=== PATIENT | female | born 1960 | race Hispanic/Latino ===

== ENCOUNTER → 2018-01-22 | Outpatient (CLI) | payer MEDICARE, OTHER | END | disposition home or self-care (01) | LOC: RAH 08:01 | PROVIDERS: ATTEND Internal Medicine Hematology & Oncology | DX: K80.20 Calculus of gallbladder without cholecystitis without obstruction (principal) | CPT/HCPCS: 76700 ==

== ENCOUNTER → 2018-02-22 | Outpatient (CLI) | payer OTHER ==
[~2018-02-22] VITALS: Ht 157.5 cm; Wt 64.9 kg
[~2018-02-22] MED LIST: LIDOCAINE HCL MPF 1% 5ML VIAL ONE
[2018-02-22 14:16] LABS: INR 1.01 (0.85-1.15); PROTHROMBIN TIME 10.6 SEC (9.6-11.6)
[2018-02-22 15:28] LABS: SPECIMENTYPE,BODY FLUID ASCITES FLUID; TOTAL VOLUME,BODY FLUID 3700 mL
[2018-02-22 16:32] LABS: APPEARANCE BODY FLUID SLIGHTLY CLOUDY (CLEAR); COLOR,BODY FLUID LT YELLOW (LT YELLOW)
[2018-02-22 16:33] LABS: BODY FLUID RBC 175 /cu. mm.; BODY FLUID WBC 182 /cu. mm.
[2018-02-22 16:42] LABS: BF LYMPHOCYTE 47 %; BF MONOCYTE 6 %; BF OTHER CELLS 35
== END | disposition home or self-care (01) ==
LOC: RAH 12:21
PROVIDERS: ATTEND Internal Medicine Hematology & Oncology
DX: R18.8 Other ascites (principal); K74.69 Other cirrhosis of liver; D69.6 Thrombocytopenia, unspecified; E78.5 Hyperlipidemia, unspecified; Z98.51 Tubal ligation status; Z98.890 Other specified postprocedural states; Z80.3 Family history of malignant neoplasm of breast; Z80.0 Family history of malignant neoplasm of digestive organs
CPT/HCPCS: 36415; 49083; 85610; 87071; 87205; 88108; 88305; 89051; A4215; J3490

== ENCOUNTER → 2018-07-10 | Outpatient (CLI) | payer OTHER | END | disposition home or self-care (01) | LOC: RAH 10:00 | PROVIDERS: ATTEND Internal Medicine Gastroenterology | DX: K80.20 Calculus of gallbladder without cholecystitis without obstruction (principal); K74.60 Unspecified cirrhosis of liver | CPT/HCPCS: 76700; 93975 ==

== ENCOUNTER → 2018-08-21 | Outpatient (CLI) | payer OTHER | END | disposition home or self-care (01) | LOC: RAH 09:50 | PROVIDERS: ATTEND Internal Medicine Gastroenterology | DX: K80.20 Calculus of gallbladder without cholecystitis without obstruction (principal); K74.60 Unspecified cirrhosis of liver | CPT/HCPCS: 78226; A9537 ==

== ENCOUNTER → 2018-12-19 | Outpatient (CLI) | payer OTHER ==
[~2018-12-19] MED LIST changes: +CEFAZOLIN SODIUM 1 GM VIAL ONE; +FENTANYL CITRATE PF 50 MCG/1 ML 2ML VIAL ONE; -LIDOCAINE HCL MPF 1% 5ML VIAL ONE; +LIDOCAINE PF 2% 5ML ABBOJECT ONE; +MIDAZOLAM HCL 1 MG/ML 2ML VIAL ONE; +ONDANSETRON HCL 4 MG/2 ML VIAL ONE; +PROPOFOL 10 MG/ML 20ML VIAL IV ONE
== END | disposition home or self-care (01) ==
LOC: RAH 08:07
PROVIDERS: ATTEND Internal Medicine Gastroenterology
DX: I83.90 Asymptomatic varicose veins of unspecified lower extremity (principal); R16.1 Splenomegaly, not elsewhere classified; R18.8 Other ascites
CPT/HCPCS: 76700; 93975; J0690; J2001; J2250; J2405; J2704; J3010

== ENCOUNTER → 2019-10-17 | Outpatient (CLI) | payer OTHER | END | disposition home or self-care (01) | LOC: RAH 08:04 | PROVIDERS: ATTEND Internal Medicine Gastroenterology | DX: K74.60 Unspecified cirrhosis of liver (principal) | CPT/HCPCS: 76700; 93975 ==

== ENCOUNTER 2021-01-20 20:26 | Inpatient (IN) | payer OTHER ==
[~2021-01-20] VITALS: Ht 157.5 cm; Wt 56.1 kg
[2021-01-20] MEDS ORDERED: FAMOTIDINE 20MG VIAL IV ONE (21:30)
[2021-01-20] MEDS ORDERED: ONDANSETRON 4MG INJ IVP ONE (21:30)
[2021-01-20] MEDS ORDERED: METOCLOPRAMIDE 10 MG/2 ML VIAL IVP ONE (21:30)
[2021-01-20] MEDS ORDERED: PANTOPRAZOLE 40 MG/VIAL IVP ONE (21:30)
[2021-01-20] MEDS ORDERED: 0.9%NACL 1000ML 1,000 ML IV ONE ×2 (21:30→23:00)
[2021-01-20 21:31] LABS: BASOPHILS % (AUTO) 0.1 % (0.0-5.0); EOSINOPHILS % (AUTO) 0.3 % (0.0-8.0); HEMATOCRIT 33.2 % (36-48); LYMPHOCYTES % (AUTO) 2.9 % (21.0-51.0); MEAN CORPUSCULAR HGB CONC 33.7 g/dL (32.0-36.0); MEAN CORPUSCULAR VOLUME 94.9 fL (79-99); MONOCYTES % (AUTO) 9.7 % (3.0-13.0); NEUTROPHILS % (AUTO) 85.8 % (40.0-77.0); PLATELET COUNT (AUTO) 114 K/uL (130-400); WHITE BLOOD COUNT (AUTO) 9.5 K/uL (4.8-10.8)
[2021-01-20 22:09] LABS: ALBUMIN 2.3 g/dL (3.5-5.0); CREATININE 7.4 mg/dL (0.5-1.5); POTASSIUM 5.4 mmol/L (3.5-5.1)
[2021-01-20 22:12] LABS: BILIRUBIN,TOTAL 2.6 mg/dL (0.2-1.0); TOTAL PROTEIN, SERUM 7.3 g/dL (6.0-8.3)
[2021-01-20] MEDS ORDERED: INSULIN HUMULIN R 100 UNIT/ML 3ML IV ONE (23:00)
[2021-01-20 23:17] LABS: ABG BASE EXCESS -14.4 mmol/L (-2.0-3.0); ABG HCO3 10.6 mmol/L (21.0-28.0); ABG OXYGEN SATURATION 97.8 % (95.0-99.0); ABG PCO2 24 mmHg (32-45)
[2021-01-21] VITALS (32 sets, daily range): BP systolic 96–117; BP diastolic 44–65
[2021-01-21] MEDS ORDERED: CEFTRIAXONE 1G VIAL IVP ONE
[2021-01-21] MEDS ORDERED: INSULIN HUMULIN R 100 UNIT/ML 3ML IV ONE
[2021-01-21] MEDS ORDERED: NITROGLYCERIN 0.4 MG SL TAB SL PRN (00:30)
[2021-01-21] MEDS ORDERED: POTASSIUM CHLORIDE 10MEQ/100ML 100 ML IV PRN (00:30)
[2021-01-21] MEDS ORDERED: HYDRALAZINE 20MG/ML VIAL IV PRN (00:30)
[2021-01-21] MEDS ORDERED: 0.9%NACL 1000ML 1,000 ML IV SCH (00:30)
[2021-01-21] MEDS: CEFTRIAXONE 1G VIAL IV SCH ×2 (00:30→02:37)
[2021-01-21] MEDS ORDERED: POTASSIUM CHLORIDE 20MEQ/100ML 100 ML IV PRN (00:30)
[2021-01-21] MEDS ORDERED: LIDOCAINE HCL-MPF 1% 2ML VIAL IV PRN (00:30)
[2021-01-21] MEDS ORDERED: METOCLOPRAMIDE 10 MG/2 ML VIAL ONE (00:42)
[2021-01-21] MEDS ORDERED: PANTOPRAZOLE 40 MG/VIAL ONE (00:43)
[2021-01-21] MEDS ORDERED: SODIUM BICARB 50MEQ 50ML VIAL 200 ML ONE (00:43)
[2021-01-21] MEDS ORDERED: 0.9%NACL 100ML 100 ML ONE (00:45)
[2021-01-21] MEDS: INSULIN REGULAR, HUMAN 3ML 100 UNIT in 0.9%NACL 100ML 99 ML IV PRN ×4 (01:00→02:00)
[2021-01-21 01:20] LABS: CREATININE 7.3 mg/dL (0.5-1.5)
[2021-01-21 01:25] LABS: POTASSIUM 6.4 mmol/L (3.5-5.1)
[2021-01-21 01:40] LABS: APPEARANCE,URINE Cloudy (CLEAR); BILIRUBIN,URINE Negative (NEGATIVE); COLOR,URINE Yellow (YELLOW); GLUCOSE, URINE (UA) Negative (NEGATIVE); KETONES,URINE Negative (NEGATIVE); LEUKOCYTE ESTERASE ,URINE Moderate (NEGATIVE); NITRATE,URINE Negative (NEGATIVE); OCCULT BLOOD,URINE Negative (NEGATIVE); PROTEIN,URINE Trace mg/dL (NEGATIVE); UROBILINOGEN,URINE 0.2 mg/dL (0.2-1.0)
[2021-01-21] MEDS: SODIUM BICARB 8.4% 50ML SYRINGE IVP SCH ×5 (01:43→03:59)
[2021-01-21 01:46] LABS: BACTERIA,URINE Moderate /HPF (None Seen); RBC,URINE None Seen /HPF (0-1); SQUAMOUS EPITHELIAL CELL,UR Rare /HPF (0-2)
[2021-01-21 06:31] LABS: CREATININE 6.7 mg/dL (0.5-1.5); POTASSIUM 4.6 mmol/L (3.5-5.1)
[2021-01-21] MEDS: 0.9%NACL 1000ML 1,000 ML IV SCH ×4 (07:10→20:42)
[2021-01-21 07:25] LABS: ABG BASE EXCESS -7.4 mmol/L (-2.0-3.0); ABG HCO3 17.8 mmol/L (21.0-28.0); ABG OXYGEN SATURATION 95.5 % (95.0-99.0); ABG PCO2 36 mmHg (32-45)
[2021-01-21] MEDS ORDERED: ZOSYN 3.375GM+NS 50ML 3.38 GM in 0.9%NACL 50ML 50 ML IV SCH (07:30)
[2021-01-21 07:39] LABS: INR 1.13 (0.85-1.15); PROTHROMBIN TIME 12.2 SEC (9.6-11.6)
[2021-01-21 07:40] LABS: PARTIAL THROMBOPLASTIN TIME 33.1 SEC (26.3-35.5)
[2021-01-21 07:59] LABS: CHOLESTEROL 100 mg/dL (<200); HDL CHOLESTEROL 14 mg/dL (35-85); LDL DIRECT 58 mg/dL (0-99); TRIGLYCERIDES 97 mg/dL (30-200)
[2021-01-21 08:01] LABS: HEMOGLOBIN A1C 8.1 % (4.0-6.0)
[2021-01-21] MEDS: METOCLOPRAMIDE 10 MG/2 ML VIAL IVP SCH ×4 (08:36→20:41)
[2021-01-21] MEDS: FAMOTIDINE 20MG VIAL IV SCH ×2 (08:36→20:41)
[2021-01-21] MEDS: HEPARIN 5,000 UNIT VIAL SQ SCH ×2 (09:59→21:28)
[2021-01-21 11:56] LABS: CREATININE 6.8 mg/dL (0.5-1.5); POTASSIUM 4.3 mmol/L (3.5-5.1)
[2021-01-21 12:08] LABS: ABG BASE EXCESS -7.9 mmol/L (-2.0-3.0); ABG HCO3 16.7 mmol/L (21.0-28.0); ABG PCO2 32 mmHg (32-45)
[2021-01-21 12:11] LABS: ABG HCO3 16.3 mmol/L (21.0-28.0); ABG OXYGEN SATURATION 96.3 % (95.0-99.0); ABG PCO2 31 mmHg (32-45)
[2021-01-21] MEDS: ZOSYN 3.375GM+NS 50ML 50 ML IV SCH ×2 (13:03→20:41)
[2021-01-21] MEDS: DEXTROSE 5 %-0.45 % NACL 1,000 ML IV PRN (13:06)
[2021-01-21] MEDS ORDERED: ALBUMIN (HUMAN) 25% 100 ML IV PRN (15:00)
[2021-01-21] MEDS ORDERED: INSULIN GLARGINE 100 UNITS/ML 10 ML VIAL SQ ONE (15:30)
[2021-01-21] MEDS: ALBUMIN (HUMAN) 25% 100 ML IV SCH ×2 (15:55→23:50)
[2021-01-21 18:23] LABS: ABG HCO3 15.8 mmol/L (21.0-28.0); ABG OXYGEN SATURATION 94.5 % (95.0-99.0); ABG PCO2 32 mmHg (32-45)
[2021-01-21 19:05] LABS: CREATININE 6.9 mg/dL (0.5-1.5); POTASSIUM 4.1 mmol/L (3.5-5.1)
[2021-01-21 19:56] LABS: CREATININE,URINE RANDOM 85 mg/dL (30-135); SODIUM,URINE RANDOM < 14 mmol/l (40-220)
[2021-01-21 19:58] LABS: APPEARANCE,URINE Turbid (CLEAR); BILIRUBIN,URINE Small (NEGATIVE); COLOR,URINE Dark Yellow (YELLOW); GLUCOSE, URINE (UA) Negative (NEGATIVE); KETONES,URINE Negative (NEGATIVE); LEUKOCYTE ESTERASE ,URINE Large (NEGATIVE); NITRATE,URINE Negative (NEGATIVE); OCCULT BLOOD,URINE Small (NEGATIVE); PROTEIN,URINE Trace mg/dL (NEGATIVE)
[2021-01-21 20:20] LABS: BACTERIA,URINE Few /HPF (None Seen); MUCUS,URINE Few LPF (None Seen); SQUAMOUS EPITHELIAL CELL,UR Few /HPF (0-2)
[2021-01-21 20:21] LABS: AMORPHOUS SEDIMENT,UR Moderate /LPF (None Seen)
[2021-01-21] MEDS: MIDODRINE HCL 5 MG TABLET PO SCH (20:42)
[2021-01-21] MEDS: SODIUM BICARBONATE 650 MG TAB PO SCH (20:42)
[2021-01-21] MEDS ORDERED: OCTREOTIDE ACETATE 100 MCG/ML AMP SQ SCH (21:00)
[2021-01-21] MEDS ORDERED: MIDODRINE HCL 5 MG TABLET PO SCH (21:00)
[2021-01-21] MEDS: INSULIN GLARGINE 100 UNITS/ML 10 ML VIAL SQ SCH (21:27)
[2021-01-21 23:29] LABS: POTASSIUM 4.1 mmol/L (3.5-5.1)
[2021-01-21 23:34] LABS: MAGNESIUM 2.6 mg/dL (1.80-2.40)
[2021-01-21 23:39] LABS: CREATININE 6.9 mg/dL (0.5-1.5)
[2021-01-21] MEDS ORDERED: ALBUMIN (HUMAN) 25% 100 ML IV ONE (23:48)
[2021-01-21 23:59] LABS: ABG BASE EXCESS -8.9 mmol/L (-2.0-3.0); ABG HCO3 16.1 mmol/L (21.0-28.0); ABG OXYGEN SATURATION 96.1 % (95.0-99.0); ABG PCO2 33 mmHg (32-45)
[2021-01-22] VITALS (25 sets, daily range): BP systolic 91–116; BP diastolic 41–56
[2021-01-22] MEDS: OCTREOTIDE ACETATE 100 MCG/ML AMP SQ SCH ×4 (00:38→21:29)
[2021-01-22 03:31] LABS: EOSINOPHILS % (AUTO) 1.2 % (0.0-8.0); HEMATOCRIT 25.7 % (36-48); MEAN CORPUSCULAR HEMOGLOBIN 32.1 pg (27.0-33.0); MEAN CORPUSCULAR HGB CONC 33.5 g/dL (32.0-36.0); MEAN CORPUSCULAR VOLUME 95.9 fL (79-99); MONOCYTES % (AUTO) 11.3 % (3.0-13.0); NEUTROPHILS % (AUTO) 76.2 % (40.0-77.0); RED BLOOD CELL COUNT(AUTO) 2.68 MIL/uL (4.00-5.50); RED CELL DISTRIBUTION WIDTH 15.2 % (11.0-15.5); WHITE BLOOD COUNT (AUTO) 3.5 K/uL (4.8-10.8)
[2021-01-22 03:47] LABS: ALBUMIN 2.5 g/dL (3.5-5.0); BILIRUBIN,TOTAL 2.5 mg/dL (0.2-1.0); THYROID STIMULATING HORMONE 1.6 uIU/mL (0.36-3.74)
[2021-01-22 03:55] LABS: MAGNESIUM 2.3 mg/dL (1.80-2.40)
[2021-01-22 04:05] LABS: CREATININE 6.9 mg/dL (0.5-1.5); URIC ACID 11.4 mg/dL (2.6-7.2)
[2021-01-22 04:20] LABS: PLATELET COUNT (AUTO) 74 K/uL (130-400)
[2021-01-22] MEDS: 0.9%NACL 1000ML 1,000 ML IV SCH ×4 (04:56→23:10)
[2021-01-22] MEDS: ZOSYN 3.375GM+NS 50ML 50 ML IV SCH (05:00)
[2021-01-22] MEDS: METOCLOPRAMIDE 10 MG/2 ML VIAL IVP SCH ×4 (06:31→21:20)
[2021-01-22] MEDS: ALBUMIN (HUMAN) 25% 100 ML IV SCH ×3 (06:31→23:33)
[2021-01-22] MEDS: INSULIN GLARGINE 100 UNITS/ML 10 ML VIAL SQ SCH ×2 (06:32→21:35)
[2021-01-22] MEDS: HEPARIN 5,000 UNIT VIAL SQ SCH ×2 (09:00→21:24)
[2021-01-22] MEDS: Vitamin B Complex/Vit C/Folic Acid PO SCH (09:37)
[2021-01-22] MEDS: SODIUM BICARBONATE 650 MG TAB PO SCH ×3 (09:37→23:33)
[2021-01-22] MEDS: FAMOTIDINE 20MG VIAL IV SCH ×2 (09:37→21:20)
[2021-01-22] MEDS: THIAMINE HCL 100 MG/ML 2ML VIAL IVP SCH (09:37)
[2021-01-22] MEDS: MIDODRINE HCL 5 MG TABLET PO SCH ×3 (09:37→21:21)
[2021-01-22] MEDS: DEXTROSE 5 %-0.45 % NACL 1,000 ML IV PRN (10:49)
[2021-01-22] MEDS: DEXTROSE 5 %-0.45 % NACL 1,000 ML IV SCH ×2 (11:09→21:21)
[2021-01-22 11:21] LABS: MAGNESIUM 2.6 mg/dL (1.80-2.40); POTASSIUM 4.4 mmol/L (3.5-5.1)
[2021-01-22] MEDS: CEFTRIAXONE 2GM VIAL IVP SCH (14:31)
[2021-01-22 16:55] LABS: HEMATOCRIT 25.6 % (36-48); MEAN CORPUSCULAR HEMOGLOBIN 32.3 pg (27.0-33.0); MEAN CORPUSCULAR HGB CONC 32.8 g/dL (32.0-36.0); MEAN CORPUSCULAR VOLUME 98.5 fL (79-99); PLATELET COUNT (AUTO) 62 K/uL (130-400); RED CELL DISTRIBUTION WIDTH 15.7 % (11.0-15.5); WHITE BLOOD COUNT (AUTO) 3.9 K/uL (4.8-10.8)
[2021-01-22 17:24] LABS: CREATININE 6.9 mg/dL (0.5-1.5); MAGNESIUM 2.4 mg/dL (1.80-2.40); POTASSIUM 4.2 mmol/L (3.5-5.1)
[2021-01-22 23:42] LABS: MAGNESIUM 2.4 mg/dL (1.80-2.40)
[2021-01-23] VITALS (15 sets, daily range): BP systolic 105–138; BP diastolic 43–61
[2021-01-23 04:40] LABS: MEAN CORPUSCULAR HEMOGLOBIN 32.2 pg (27.0-33.0); MEAN CORPUSCULAR VOLUME 97.8 fL (79-99); RED BLOOD CELL COUNT(AUTO) 2.76 MIL/uL (4.00-5.50); RED CELL DISTRIBUTION WIDTH 15.4 % (11.0-15.5); WHITE BLOOD COUNT (AUTO) 4.7 K/uL (4.8-10.8)
[2021-01-23 05:07] LABS: CREATININE 7.1 mg/dL (0.5-1.5); POTASSIUM 4.1 mmol/L (3.5-5.1)
[2021-01-23] MEDS: 0.9%NACL 1000ML 1,000 ML IV SCH ×3 (05:50→19:10)
[2021-01-23] MEDS: OCTREOTIDE ACETATE 100 MCG/ML AMP SQ SCH ×3 (06:00→21:24)
[2021-01-23] MEDS: DEXTROSE 5 %-0.45 % NACL 1,000 ML IV SCH ×2 (06:00→16:00)
[2021-01-23] MEDS: ALBUMIN (HUMAN) 25% 100 ML IV SCH (06:46)
[2021-01-23] MEDS: METOCLOPRAMIDE 10 MG/2 ML VIAL IVP SCH ×4 (08:18→20:18)
[2021-01-23] MEDS: FAMOTIDINE 20MG VIAL IV SCH ×2 (08:28→20:18)
[2021-01-23] MEDS: MIDODRINE HCL 5 MG TABLET PO SCH ×3 (08:28→20:18)
[2021-01-23] MEDS: Vitamin B Complex/Vit C/Folic Acid PO SCH (08:28)
[2021-01-23] MEDS: SODIUM BICARBONATE 650 MG TAB PO SCH ×3 (08:28→20:19)
[2021-01-23] MEDS: THIAMINE HCL 100 MG/ML 2ML VIAL IVP SCH (08:28)
[2021-01-23] MEDS ORDERED: ALBUMIN (HUMAN) 25% 100 ML IV SCH (08:30)
[2021-01-23] MEDS: INSULIN GLARGINE 100 UNITS/ML 10 ML VIAL SQ SCH ×2 (08:32→20:21)
[2021-01-23] MEDS: HEPARIN 5,000 UNIT VIAL SQ SCH ×2 (09:00→20:20)
[2021-01-23] MEDS: CEFTRIAXONE 2GM VIAL IVP SCH (15:01)
[2021-01-23] MEDS: INSULIN HUMULIN R 100 UNIT/ML 3ML SQ SCH (20:22)
[2021-01-24] VITALS (12 sets, daily range): BP systolic 97–131; BP diastolic 44–83
[2021-01-24] MEDS: 0.9%NACL 1000ML 1,000 ML IV SCH ×4 (01:41→19:59)
[2021-01-24] MEDS: DEXTROSE 5 %-0.45 % NACL 1,000 ML IV SCH ×3 (01:41→19:59)
[2021-01-24 03:35] LABS: HEMATOCRIT 28.2 % (36-48); MEAN CORPUSCULAR HEMOGLOBIN 31.9 pg (27.0-33.0); MEAN CORPUSCULAR HGB CONC 33.3 g/dL (32.0-36.0); MEAN CORPUSCULAR VOLUME 95.6 fL (79-99); RED BLOOD CELL COUNT(AUTO) 2.95 MIL/uL (4.00-5.50); RED CELL DISTRIBUTION WIDTH 15.6 % (11.0-15.5); WHITE BLOOD COUNT (AUTO) 7.1 K/uL (4.8-10.8)
[2021-01-24 03:49] LABS: CREATININE 7.8 mg/dL (0.5-1.5)
[2021-01-24] MEDS: INSULIN HUMULIN R 100 UNIT/ML 3ML SQ SCH ×4 (05:51→20:40)
[2021-01-24] MEDS: INSULIN GLARGINE 100 UNITS/ML 10 ML VIAL SQ SCH ×2 (05:57→20:40)
[2021-01-24] MEDS: OCTREOTIDE ACETATE 100 MCG/ML AMP SQ SCH ×3 (05:58→21:59)
[2021-01-24] MEDS: METOCLOPRAMIDE 10 MG/2 ML VIAL IVP SCH ×5 (07:30→21:59)
[2021-01-24] MEDS: FAMOTIDINE 20MG VIAL IV SCH ×2 (07:47→20:38)
[2021-01-24] MEDS: Vitamin B Complex/Vit C/Folic Acid PO SCH (07:47)
[2021-01-24] MEDS: SODIUM BICARBONATE 650 MG TAB PO SCH ×3 (07:57→23:10)
[2021-01-24] MEDS: MIDODRINE HCL 5 MG TABLET PO SCH ×3 (07:57→23:10)
[2021-01-24] MEDS: THIAMINE HCL 100 MG/ML 2ML VIAL IVP SCH (07:58)
[2021-01-24] MEDS: HEPARIN 5,000 UNIT VIAL SQ SCH ×2 (07:58→20:39)
[2021-01-24] MEDS ORDERED: ALBUMIN (HUMAN) 25% 100 ML IV SCH (08:30)
[2021-01-24] MEDS: CEFTRIAXONE 2GM VIAL IVP SCH (12:31)
[2021-01-24] MEDS: ONDANSETRON 4MG INJ IV PRN (16:19)
[2021-01-25] VITALS (10 sets, daily range): BP systolic 109–161; BP diastolic 44–57
[2021-01-25] MEDS: ONDANSETRON 4MG INJ IV PRN (03:03)
[2021-01-25] MEDS: 0.9%NACL 1000ML 1,000 ML IV SCH ×4 (03:52→23:43)
[2021-01-25 04:12] LABS: BASOPHILS % (AUTO) 0.2 % (0.0-5.0); EOSINOPHILS % (AUTO) 3.9 % (0.0-8.0); HEMATOCRIT 30.8 % (36-48); LYMPHOCYTES % (AUTO) 6.5 % (21.0-51.0); MEAN CORPUSCULAR HEMOGLOBIN 32.2 pg (27.0-33.0); MEAN CORPUSCULAR HGB CONC 33.1 g/dL (32.0-36.0); MEAN CORPUSCULAR VOLUME 97.2 fL (79-99); MONOCYTES % (AUTO) 8.8 % (3.0-13.0); NEUTROPHILS % (AUTO) 79.3 % (40.0-77.0); PLATELET COUNT (AUTO) 90 K/uL (130-400); RED BLOOD CELL COUNT(AUTO) 3.17 MIL/uL (4.00-5.50); RED CELL DISTRIBUTION WIDTH 15.5 % (11.0-15.5); WHITE BLOOD COUNT (AUTO) 8.2 K/uL (4.8-10.8)
[2021-01-25 04:22] LABS: INR 1.22 (0.85-1.15); PROTHROMBIN TIME 13.1 SEC (9.6-11.6)
[2021-01-25 04:23] LABS: PARTIAL THROMBOPLASTIN TIME 38.2 SEC (26.3-35.5)
[2021-01-25 04:29] LABS: POTASSIUM 4.2 mmol/L (3.5-5.1)
[2021-01-25 04:51] LABS: CREATININE 8.2 mg/dL (0.5-1.5)
[2021-01-25] MEDS: OCTREOTIDE ACETATE 100 MCG/ML AMP SQ SCH ×3 (05:47→21:23)
[2021-01-25] MEDS: INSULIN HUMULIN R 100 UNIT/ML 3ML SQ SCH ×4 (06:06→21:00)
[2021-01-25] MEDS: INSULIN GLARGINE 100 UNITS/ML 10 ML VIAL SQ SCH ×2 (06:45→21:22)
[2021-01-25] MEDS: METOCLOPRAMIDE 10 MG/2 ML VIAL IVP SCH ×4 (07:30→21:23)
[2021-01-25] MEDS: DEXTROSE 5 %-0.45 % NACL 1,000 ML IV SCH ×2 (08:00→18:00)
[2021-01-25] MEDS: THIAMINE HCL 100 MG/ML 2ML VIAL IVP SCH (08:17)
[2021-01-25] MEDS: FAMOTIDINE 20MG VIAL IV SCH ×2 (08:18→21:23)
[2021-01-25] MEDS: MIDODRINE HCL 5 MG TABLET PO SCH ×3 (08:18→21:24)
[2021-01-25] MEDS: Vitamin B Complex/Vit C/Folic Acid PO SCH (08:18)
[2021-01-25] MEDS: SODIUM BICARBONATE 650 MG TAB PO SCH ×3 (08:18→21:24)
[2021-01-25] MEDS: HEPARIN 5,000 UNIT VIAL SQ SCH ×2 (08:29→21:23)
[2021-01-25] MEDS ORDERED: ALBUMIN (HUMAN) 25% 200 ML IV SCH (14:00)
[2021-01-25] MEDS: CEFTRIAXONE 2GM VIAL IVP SCH (14:49)
[2021-01-25 16:24] LABS: SPECIMENTYPE,BODY FLUID ASCITES
[2021-01-25 16:25] LABS: APPEARANCE BODY FLUID SLIGHTLY CLOUDY (CLEAR); BODY FLUID WBC 526 /cu. mm.; COLOR,BODY FLUID YELLOW (LT YELLOW); TOTAL VOLUME,BODY FLUID 7700 mL
[2021-01-25 16:26] LABS: BODY FLUID RBC 330 /cu. mm.
[2021-01-25 16:47] LABS: BF LYMPHOCYTE 3 %; BF MONOCYTE 2 %
[2021-01-26] MEDS: DEXTROSE 5 %-0.45 % NACL 1,000 ML IV SCH ×2 (03:09→14:00)
[2021-01-26 03:39] LABS: BASOPHILS % (AUTO) 0.2 % (0.0-5.0); EOSINOPHILS % (AUTO) 0.9 % (0.0-8.0); HEMATOCRIT 30.9 % (36-48); LYMPHOCYTES % (AUTO) 3.9 % (21.0-51.0); MEAN CORPUSCULAR HEMOGLOBIN 32.1 pg (27.0-33.0); MEAN CORPUSCULAR VOLUME 97.2 fL (79-99); NEUTROPHILS % (AUTO) 88.7 % (40.0-77.0); PLATELET COUNT (AUTO) 77 K/uL (130-400); RED BLOOD CELL COUNT(AUTO) 3.18 MIL/uL (4.00-5.50); RED CELL DISTRIBUTION WIDTH 15.7 % (11.0-15.5); WHITE BLOOD COUNT (AUTO) 9.6 K/uL (4.8-10.8)
[2021-01-26 03:51] LABS: INR 1.28 (0.85-1.15); PROTHROMBIN TIME 13.6 SEC (9.6-11.6)
[2021-01-26 03:53] LABS: PARTIAL THROMBOPLASTIN TIME 44.5 SEC (26.3-35.5)
[2021-01-26 03:57] VITALS: BP 128/50
[2021-01-26 04:05] LABS: MAGNESIUM 2.6 mg/dL (1.80-2.40); PHOSPHORUS 9.7 mg/dL (2.5-4.9); POTASSIUM 4.4 mmol/L (3.5-5.1)
[2021-01-26 04:50] LABS: CREATININE 8.6 mg/dL (0.5-1.5)
[2021-01-26] MEDS: OCTREOTIDE ACETATE 100 MCG/ML AMP SQ SCH (05:35)
[2021-01-26] MEDS: INSULIN HUMULIN R 100 UNIT/ML 3ML SQ SCH ×4 (06:09→20:37)
[2021-01-26] MEDS: INSULIN GLARGINE 100 UNITS/ML 10 ML VIAL SQ SCH ×2 (06:30→20:47)
[2021-01-26] MEDS: 0.9%NACL 1000ML 1,000 ML IV SCH ×3 (06:49→20:30)
[2021-01-26 07:10] VITALS: BP 123/50
[2021-01-26] MEDS: METOCLOPRAMIDE 10 MG/2 ML VIAL IVP SCH ×4 (07:36→20:45)
[2021-01-26] MEDS: ALBUMIN (HUMAN) 25% 100 ML IV SCH ×3 (07:37→22:12)
[2021-01-26] MEDS: SODIUM BICARBONATE 650 MG TAB PO SCH ×3 (09:00→20:45)
[2021-01-26] MEDS: Vitamin B Complex/Vit C/Folic Acid PO SCH (09:00)
[2021-01-26] MEDS: MIDODRINE HCL 5 MG TABLET PO SCH ×3 (09:00→20:45)
[2021-01-26] MEDS: FAMOTIDINE 20MG VIAL IV SCH ×2 (09:02→20:45)
[2021-01-26] MEDS: THIAMINE HCL 100 MG/ML 2ML VIAL IVP SCH (09:02)
[2021-01-26] MEDS: HEPARIN 5,000 UNIT VIAL SQ SCH ×2 (09:10→20:45)
[2021-01-26] MEDS ORDERED: BISACODYL 10 MG SUPP.RECT RC PRN (10:00)
[2021-01-26] MEDS ORDERED: LACTULOSE 20 GM/30 ML UDCUP PO PRN (10:00)
[2021-01-26 11:00] VITALS: BP 112/44
[2021-01-26] MEDS: CEFTRIAXONE 2GM VIAL IVP SCH (13:48)
[2021-01-26 15:00] VITALS: BP 120/38
[2021-01-26 19:00] VITALS: BP 117/42
[2021-01-27] VITALS (24 sets, daily range): BP systolic 107–127; BP diastolic 45–57
[2021-01-27] MEDS: 0.9%NACL 1000ML 1,000 ML IV SCH ×4 (02:34→23:10)
[2021-01-27 04:12] LABS: MEAN CORPUSCULAR HEMOGLOBIN 31.6 pg (27.0-33.0); MEAN CORPUSCULAR HGB CONC 32.5 g/dL (32.0-36.0); MEAN CORPUSCULAR VOLUME 97.2 fL (79-99); PLATELET COUNT (AUTO) 66 K/uL (130-400); RED BLOOD CELL COUNT(AUTO) 2.88 MIL/uL (4.00-5.50); RED CELL DISTRIBUTION WIDTH 15.3 % (11.0-15.5); WHITE BLOOD COUNT (AUTO) 8.4 K/uL (4.8-10.8)
[2021-01-27 04:21] LABS: INR 1.36 (0.85-1.15); PROTHROMBIN TIME 14.4 SEC (9.6-11.6)
[2021-01-27 04:23] LABS: PARTIAL THROMBOPLASTIN TIME 45.6 SEC (26.3-35.5)
[2021-01-27 04:31] LABS: MAGNESIUM 2.6 mg/dL (1.80-2.40); PHOSPHORUS 11.5 mg/dL (2.5-4.9); POTASSIUM 4.5 mmol/L (3.5-5.1)
[2021-01-27 04:37] LABS: CREATININE 9.5 mg/dL (0.5-1.5)
[2021-01-27 05:31] LABS: BAND NEUTROPHILS % (MANUAL) 2 % (0-2); BASOPHILS % (MANUAL) 1 % (0-2); LYMPHOCYTES % (MANUAL) 2 % (22-44); MAN.DIFF COMMENT-IMPRESSION MANUAL DIFFERENTIAL; MONOCYTES % (MANUAL) 5 % (2-9); SEGMENTED NEUTROPHILS % 90 % (40-70)
[2021-01-27] MEDS: INSULIN HUMULIN R 100 UNIT/ML 3ML SQ SCH ×4 (06:01→20:46)
[2021-01-27] MEDS: ALBUMIN (HUMAN) 25% 100 ML IV SCH ×3 (06:26→23:02)
[2021-01-27] MEDS: INSULIN GLARGINE 100 UNITS/ML 10 ML VIAL SQ SCH ×2 (06:56→20:46)
[2021-01-27] MEDS: DEXTROSE 5 %-0.45 % NACL 1,000 ML IV SCH ×3 (07:59→20:00)
[2021-01-27] MEDS: SODIUM BICARBONATE 650 MG TAB PO SCH ×3 (09:41→20:35)
[2021-01-27] MEDS: FAMOTIDINE 20MG VIAL IV SCH ×2 (09:41→20:34)
[2021-01-27] MEDS: METOCLOPRAMIDE 10 MG/2 ML VIAL IVP SCH ×4 (09:41→20:34)
[2021-01-27] MEDS: THIAMINE HCL 100 MG/ML 2ML VIAL IVP SCH (09:41)
[2021-01-27] MEDS: MIDODRINE HCL 5 MG TABLET PO SCH ×3 (09:42→20:35)
[2021-01-27] MEDS: Vitamin B Complex/Vit C/Folic Acid PO SCH (09:42)
[2021-01-27] MEDS: HEPARIN 5,000 UNIT VIAL SQ SCH ×2 (09:53→20:46)
[2021-01-27 12:52] LABS: HEMATOCRIT 27.6 % (36-48)
[2021-01-27 13:09] LABS: HEMOGLOBIN A1C 7.4 % (4.0-6.0)
[2021-01-27 13:12] LABS: GLOMERULAR FILTR. RATE CALC 4 mL/min (>60); LDL DIRECT 35 mg/dL (0-99); TRIGLYCERIDES 115 mg/dL (30-200)
[2021-01-27 13:31] LABS: % IRON SATURATION 64.5 % (22-44)
[2021-01-27 13:33] LABS: CHOLESTEROL 53 mg/dL (<200); HDL CHOLESTEROL < 10 mg/dL (35-85)
[2021-01-27 13:34] LABS: UREA NITROGEN, BLOOD 146 mg/dL (7-18)
[2021-01-27 13:35] LABS: CREATININE 9.7 mg/dL (0.5-1.5)
[2021-01-27] MEDS ORDERED: HEPARIN 1,000 UNIT VIAL ONE (13:35)
[2021-01-27] MEDS ORDERED: LIDOCAINE HCL 1% MDV 50ML VIAL ONE (13:35)
[2021-01-27] MEDS: CEFTRIAXONE 2GM VIAL IVP SCH (16:08)
[2021-01-27] MEDS ORDERED: HEPARIN 5,000 UNIT VIAL SQ PRN (18:30)
[2021-01-27] MEDS ORDERED: 0.9%NACL 1000ML 1,000 ML IV PRN (18:30)
[2021-01-27 19:11] LABS: BASOPHILS % (AUTO) 0.3 % (0.0-5.0); EOSINOPHILS % (AUTO) 0.8 % (0.0-8.0); HEMATOCRIT 27.1 % (36-48); LYMPHOCYTES % (AUTO) 3.1 % (21.0-51.0); MEAN CORPUSCULAR HGB CONC 34.3 g/dL (32.0-36.0); MEAN CORPUSCULAR VOLUME 96.1 fL (79-99); MONOCYTES % (AUTO) 7.4 % (3.0-13.0); NEUTROPHILS % (AUTO) 87.5 % (40.0-77.0); PLATELET COUNT (AUTO) 64 K/uL (130-400); RED BLOOD CELL COUNT(AUTO) 2.82 MIL/uL (4.00-5.50); RED CELL DISTRIBUTION WIDTH 15.2 % (11.0-15.5); WHITE BLOOD COUNT (AUTO) 7.9 K/uL (4.8-10.8)
[2021-01-27 19:32] LABS: ALBUMIN 4.5 g/dL (3.5-5.0); BILIRUBIN,TOTAL 3.8 mg/dL (0.2-1.0); POTASSIUM 3.5 mmol/L (3.5-5.1); TOTAL PROTEIN, SERUM 7.3 g/dL (6.0-8.3)
[2021-01-28] VITALS (22 sets, daily range): BP systolic 80–151; BP diastolic 40–65
[2021-01-28 04:13] LABS: HEMATOCRIT 26.7 % (36-48); MEAN CORPUSCULAR HEMOGLOBIN 31.9 pg (27.0-33.0); MEAN CORPUSCULAR HGB CONC 33.3 g/dL (32.0-36.0); MEAN CORPUSCULAR VOLUME 95.7 fL (79-99); PLATELET COUNT (AUTO) 66 K/uL (130-400); RED BLOOD CELL COUNT(AUTO) 2.79 MIL/uL (4.00-5.50); RED CELL DISTRIBUTION WIDTH 15.4 % (11.0-15.5); WHITE BLOOD COUNT (AUTO) 5.9 K/uL (4.8-10.8)
[2021-01-28 04:19] LABS: CREATININE 7.1 mg/dL (0.5-1.5); MAGNESIUM 2.4 mg/dL (1.80-2.40); PHOSPHORUS 8.1 mg/dL (2.5-4.9); POTASSIUM 3.9 mmol/L (3.5-5.1)
[2021-01-28 05:16] LABS: BASOPHILS % (MANUAL) 2 % (0-2); EOSINOPHILS % (MANUAL) 4 % (1-6); LYMPHOCYTES % (MANUAL) 7 % (22-44); MAN.DIFF COMMENT-IMPRESSION MANUAL DIFFERENTIAL; MONOCYTES % (MANUAL) 5 % (2-9); SEGMENTED NEUTROPHILS % 82 % (40-70)
[2021-01-28] MEDS: INSULIN HUMULIN R 100 UNIT/ML 3ML SQ SCH ×4 (05:57→22:32)
[2021-01-28] MEDS: METOCLOPRAMIDE 10 MG/2 ML VIAL IVP SCH ×4 (06:01→22:23)
[2021-01-28] MEDS: INSULIN GLARGINE 100 UNITS/ML 10 ML VIAL SQ SCH ×2 (06:06→22:32)
[2021-01-28 07:16] LABS: HEPATITIS Bs ANTIGEN SCREEN P Negative (Negative)
[2021-01-28] MEDS: Vitamin B Complex/Vit C/Folic Acid PO SCH (10:20)
[2021-01-28] MEDS: THIAMINE HCL 100 MG/ML 2ML VIAL IVP SCH (10:21)
[2021-01-28] MEDS: SODIUM BICARBONATE 650 MG TAB PO SCH ×3 (10:28→22:24)
[2021-01-28] MEDS: MIDODRINE HCL 5 MG TABLET PO SCH ×3 (10:29→22:24)
[2021-01-28] MEDS: HEPARIN 5,000 UNIT VIAL SQ SCH ×2 (10:34→22:32)
[2021-01-28] MEDS: ALBUMIN (HUMAN) 25% 100 ML IV SCH ×2 (10:40→15:02)
[2021-01-28] MEDS: CEFTRIAXONE 2GM VIAL IVP SCH (12:41)
[2021-01-28] MEDS ORDERED: EPOETIN ALFA-EPBX (ESRD) 10,000 UNIT/ML VIAL SQ SCH (14:30)
[2021-01-28] MEDS: PANTOPRAZOLE 40 MG/VIAL IVP SCH (22:24)
[2021-01-29] VITALS (7 sets, daily range): BP systolic 108–140; BP diastolic 49–62
[2021-01-29 04:19] LABS: HEMATOCRIT 29.8 % (36-48); MEAN CORPUSCULAR HEMOGLOBIN 32.4 pg (27.0-33.0); MEAN CORPUSCULAR HGB CONC 33.2 g/dL (32.0-36.0); MEAN CORPUSCULAR VOLUME 97.4 fL (79-99); RED BLOOD CELL COUNT(AUTO) 3.06 MIL/uL (4.00-5.50); RED CELL DISTRIBUTION WIDTH 15.8 % (11.0-15.5); WHITE BLOOD COUNT (AUTO) 8.7 K/uL (4.8-10.8)
[2021-01-29 04:29] LABS: CREATININE 5.2 mg/dL (0.5-1.5); MAGNESIUM 2.2 mg/dL (1.80-2.40); PHOSPHORUS 5.2 mg/dL (2.5-4.9); POTASSIUM 3.2 mmol/L (3.5-5.1)
[2021-01-29] MEDS ORDERED: ALPRAZOLAM 0.25 MG TABLET PO ONE (05:00)
[2021-01-29] MEDS ORDERED: ALPRAZOLAM 0.25 MG TABLET ONE (05:26)
[2021-01-29] MEDS ORDERED: SERT100T PO (05:44)
[2021-01-29] MEDS: INSULIN HUMULIN R 100 UNIT/ML 3ML SQ SCH ×4 (05:47→22:04)
[2021-01-29] MEDS ORDERED: CLONAZEPAM 0.5 MG TABLET PO SCH (06:00)
[2021-01-29] MEDS ORDERED: CLONAZEPAM 0.5 MG TABLET ONE (06:04)
[2021-01-29] MEDS: METOCLOPRAMIDE 10 MG/2 ML VIAL IVP SCH ×4 (06:09→21:48)
[2021-01-29] MEDS: INSULIN GLARGINE 100 UNITS/ML 10 ML VIAL SQ SCH ×2 (06:14→22:04)
[2021-01-29] MEDS: SODIUM BICARBONATE 650 MG TAB PO SCH ×3 (08:56→21:49)
[2021-01-29] MEDS: MIDODRINE HCL 5 MG TABLET PO SCH ×3 (08:56→21:49)
[2021-01-29] MEDS: Vitamin B Complex/Vit C/Folic Acid PO SCH (08:56)
[2021-01-29] MEDS: THIAMINE HCL 100 MG/ML 2ML VIAL IVP SCH (08:56)
[2021-01-29] MEDS: SERTRALINE HCL 50 MG TABLET PO SCH (08:56)
[2021-01-29] MEDS: PANTOPRAZOLE 40 MG/VIAL IVP SCH ×2 (08:57→21:48)
[2021-01-29] MEDS: HEPARIN 5,000 UNIT VIAL SQ SCH ×2 (08:58→22:03)
[2021-01-29] MEDS: KCL 20 MEQ ERTAB PO PRN (15:16)
[2021-01-29] MEDS: CEFTRIAXONE 2GM VIAL IVP SCH (15:16)
[2021-01-30] VITALS (21 sets, daily range): BP systolic 94–122; BP diastolic 45–61
[2021-01-30 03:49] LABS: HEMATOCRIT 30.8 % (36-48); MEAN CORPUSCULAR HEMOGLOBIN 32.3 pg (27.0-33.0); MEAN CORPUSCULAR HGB CONC 32.8 g/dL (32.0-36.0); MEAN CORPUSCULAR VOLUME 98.4 fL (79-99); RED BLOOD CELL COUNT(AUTO) 3.13 MIL/uL (4.00-5.50); RED CELL DISTRIBUTION WIDTH 15.7 % (11.0-15.5)
[2021-01-30 04:04] LABS: CREATININE 6.7 mg/dL (0.5-1.5); POTASSIUM 3.2 mmol/L (3.5-5.1)
[2021-01-30] MEDS: ONDANSETRON 4MG INJ IV PRN (04:13)
[2021-01-30] MEDS: INSULIN HUMULIN R 100 UNIT/ML 3ML SQ SCH ×4 (05:45→22:02)
[2021-01-30] MEDS: KCL 20 MEQ ERTAB PO PRN (06:57)
[2021-01-30] MEDS: METOCLOPRAMIDE 10 MG/2 ML VIAL IVP SCH ×4 (06:58→21:43)
[2021-01-30] MEDS: INSULIN GLARGINE 100 UNITS/ML 10 ML VIAL SQ SCH ×2 (07:04→22:01)
[2021-01-30] MEDS: HEPARIN 5,000 UNIT VIAL SQ SCH ×2 (09:00→22:00)
[2021-01-30] MEDS: SODIUM BICARBONATE 650 MG TAB PO SCH ×3 (09:00→21:43)
[2021-01-30] MEDS ORDERED: HEPARIN 5,000 UNIT VIAL IV SCH (09:28)
[2021-01-30] MEDS ORDERED: ALBUMIN (HUMAN) 25% 100 ML IV STA (11:25)
[2021-01-30] MEDS: MIDODRINE HCL 5 MG TABLET PO SCH ×3 (11:27→21:43)
[2021-01-30] MEDS: Vitamin B Complex/Vit C/Folic Acid PO SCH (13:00)
[2021-01-30] MEDS: THIAMINE HCL 100 MG/ML 2ML VIAL IVP SCH (13:00)
[2021-01-30] MEDS: PANTOPRAZOLE 40 MG/VIAL IVP SCH ×2 (13:00→21:43)
[2021-01-30] MEDS: SERTRALINE HCL 50 MG TABLET PO SCH (13:00)
[2021-01-30] MEDS: CEFTRIAXONE 2GM VIAL IVP SCH (13:31)
[2021-01-31] VITALS: BP 106/43
[2021-01-31 04:00] VITALS: BP 115/41
[2021-01-31 04:53] LABS: HEMATOCRIT 28.3 % (36-48); MEAN CORPUSCULAR HEMOGLOBIN 32.7 pg (27.0-33.0); MEAN CORPUSCULAR HGB CONC 32.9 g/dL (32.0-36.0); MEAN CORPUSCULAR VOLUME 99.6 fL (79-99); PLATELET COUNT (AUTO) 77 K/uL (130-400); RED BLOOD CELL COUNT(AUTO) 2.84 MIL/uL (4.00-5.50); RED CELL DISTRIBUTION WIDTH 15.7 % (11.0-15.5)
[2021-01-31 05:15] LABS: ALBUMIN 3.4 g/dL (3.5-5.0); BILIRUBIN,TOTAL 1.9 mg/dL (0.2-1.0); CREATININE 5.1 mg/dL (0.5-1.5); POTASSIUM 3.2 mmol/L (3.5-5.1); TOTAL PROTEIN, SERUM 6.4 g/dL (6.0-8.3)
[2021-01-31 05:56] LABS: BASOPHILS % (MANUAL) 1 % (0-2); LYMPHOCYTES % (MANUAL) 6 % (22-44); MAN.DIFF COMMENT-IMPRESSION MANUAL DIFFERENTIAL; MONOCYTES % (MANUAL) 14 % (2-9); SEGMENTED NEUTROPHILS % 79 % (40-70)
[2021-01-31 05:57] LABS: PLATELET MORPHOLOGY COMMENT DECREASED
[2021-01-31] MEDS: KCL 20 MEQ ERTAB PO PRN ×2 (06:32→11:13)
[2021-01-31] MEDS: METOCLOPRAMIDE 10 MG/2 ML VIAL IVP SCH ×3 (06:32→22:39)
[2021-01-31] MEDS: INSULIN GLARGINE 100 UNITS/ML 10 ML VIAL SQ SCH ×2 (06:33→22:53)
[2021-01-31] MEDS: INSULIN HUMULIN R 100 UNIT/ML 3ML SQ SCH ×2 (06:34→21:00)
[2021-01-31 08:00] VITALS: BP 115/56
[2021-01-31] MEDS: SERTRALINE HCL 50 MG TABLET PO SCH (08:00)
[2021-01-31] MEDS: FLUCONAZOLE 400 MG/NS 200 ML 200 ML IV SCH (08:00)
[2021-01-31] MEDS: Vitamin B Complex/Vit C/Folic Acid PO SCH (08:00)
[2021-01-31] MEDS: PANTOPRAZOLE 40 MG/VIAL IVP SCH ×2 (08:01→22:39)
[2021-01-31] MEDS: THIAMINE HCL 100 MG/ML 2ML VIAL IVP SCH (08:01)
[2021-01-31] MEDS: MIDODRINE HCL 5 MG TABLET PO SCH ×3 (08:07→22:55)
[2021-01-31] MEDS: SODIUM BICARBONATE 650 MG TAB PO SCH ×3 (08:08→23:45)
[2021-01-31] MEDS: HEPARIN 5,000 UNIT VIAL SQ SCH ×2 (09:22→22:52)
[2021-01-31 12:00] VITALS: BP 108/50
[2021-01-31] MEDS: CEFTRIAXONE 2GM VIAL IVP SCH (13:52)
[2021-01-31 16:00] VITALS: BP 125/52
[2021-01-31 20:00] VITALS: BP 106/56
[2021-02-01] VITALS: BP 129/54
[2021-02-01 04:02] LABS: BASOPHILS % (AUTO) 0.4 % (0.0-5.0); EOSINOPHILS % (AUTO) 1.7 % (0.0-8.0); HEMATOCRIT 28.1 % (36-48); LYMPHOCYTES % (AUTO) 6.3 % (21.0-51.0); MEAN CORPUSCULAR HEMOGLOBIN 32.6 pg (27.0-33.0); MEAN CORPUSCULAR VOLUME 101.8 fL (79-99); MONOCYTES % (AUTO) 15.6 % (3.0-13.0); NEUTROPHILS % (AUTO) 75.1 % (40.0-77.0); PLATELET COUNT (AUTO) 74 K/uL (130-400); RED BLOOD CELL COUNT(AUTO) 2.76 MIL/uL (4.00-5.50); RED CELL DISTRIBUTION WIDTH 15.9 % (11.0-15.5); WHITE BLOOD COUNT (AUTO) 7.8 K/uL (4.8-10.8)
[2021-02-01 04:03] VITALS: BP 106/45
[2021-02-01 04:19] LABS: ALBUMIN 3.2 g/dL (3.5-5.0); BILIRUBIN,TOTAL 1.6 mg/dL (0.2-1.0); CREATININE 6.3 mg/dL (0.5-1.5); TOTAL PROTEIN, SERUM 6.4 g/dL (6.0-8.3)
[2021-02-01] MEDS: METOCLOPRAMIDE 10 MG/2 ML VIAL IVP SCH ×4 (06:41→21:47)
[2021-02-01] MEDS: INSULIN HUMULIN R 100 UNIT/ML 3ML SQ SCH ×4 (06:46→21:49)
[2021-02-01 08:00] VITALS: BP 105/58
[2021-02-01] MEDS ORDERED: REGADENOSON 0.4 MG/5 ML PF SYG IVP SCH (08:30)
[2021-02-01] MEDS: FLUCONAZOLE 400 MG/NS 200 ML 200 ML IV SCH (08:42)
[2021-02-01] MEDS: PANTOPRAZOLE 40 MG/VIAL IVP SCH ×2 (08:43→21:47)
[2021-02-01] MEDS: THIAMINE HCL 100 MG/ML 2ML VIAL IVP SCH (08:43)
[2021-02-01] MEDS: ONDANSETRON 4MG INJ IV PRN (11:36)
[2021-02-01] MEDS: MIDODRINE HCL 5 MG TABLET PO SCH ×3 (11:44→21:48)
[2021-02-01 12:00] VITALS: BP 103/57
[2021-02-01] MEDS: SODIUM BICARBONATE 650 MG TAB PO SCH ×3 (12:15→21:48)
[2021-02-01] MEDS: SERTRALINE HCL 50 MG TABLET PO SCH (12:15)
[2021-02-01] MEDS: HEPARIN 5,000 UNIT VIAL SQ SCH (12:15)
[2021-02-01] MEDS: INSULIN GLARGINE 100 UNITS/ML 10 ML VIAL SQ SCH ×2 (12:17→21:49)
[2021-02-01] MEDS: Vitamin B Complex/Vit C/Folic Acid PO SCH (12:17)
[2021-02-01] MEDS: CEFTRIAXONE 2GM VIAL IVP SCH (15:24)
[2021-02-01 17:02] VITALS: BP 118/56
[2021-02-01 20:00] VITALS: BP 139/64
[2021-02-02] VITALS (28 sets, daily range): BP systolic 96–125; BP diastolic 43–62
[2021-02-02 04:11] LABS: BASOPHILS % (AUTO) 0.3 % (0.0-5.0); EOSINOPHILS % (AUTO) 1.3 % (0.0-8.0); HEMATOCRIT 30.4 % (36-48); LYMPHOCYTES % (AUTO) 5.5 % (21.0-51.0); MEAN CORPUSCULAR HEMOGLOBIN 32.1 pg (27.0-33.0); MEAN CORPUSCULAR HGB CONC 31.3 g/dL (32.0-36.0); MEAN CORPUSCULAR VOLUME 102.7 fL (79-99); MONOCYTES % (AUTO) 13.4 % (3.0-13.0); NEUTROPHILS % (AUTO) 78.8 % (40.0-77.0); PLATELET COUNT (AUTO) 73 K/uL (130-400); RED BLOOD CELL COUNT(AUTO) 2.96 MIL/uL (4.00-5.50); RED CELL DISTRIBUTION WIDTH 16.1 % (11.0-15.5); WHITE BLOOD COUNT (AUTO) 9.1 K/uL (4.8-10.8)
[2021-02-02 04:23] LABS: INR 1.33 (0.85-1.15); PROTHROMBIN TIME 14.1 SEC (9.6-11.6)
[2021-02-02 04:40] LABS: CREATININE 7.5 mg/dL (0.5-1.5); POTASSIUM 4.3 mmol/L (3.5-5.1)
[2021-02-02] MEDS: INSULIN HUMULIN R 100 UNIT/ML 3ML SQ SCH ×4 (04:48→20:51)
[2021-02-02] MEDS: INSULIN GLARGINE 100 UNITS/ML 10 ML VIAL SQ SCH ×2 (06:02→20:54)
[2021-02-02] MEDS: METOCLOPRAMIDE 10 MG/2 ML VIAL IVP SCH ×4 (06:15→20:50)
[2021-02-02] MEDS: ALBUMIN (HUMAN) 25% 200 ML IV SCH ×2 (11:08→11:12)
[2021-02-02] MEDS: PANTOPRAZOLE 40 MG/VIAL IVP SCH ×2 (11:13→20:50)
[2021-02-02] MEDS: Vitamin B Complex/Vit C/Folic Acid PO SCH (11:13)
[2021-02-02] MEDS: SODIUM BICARBONATE 650 MG TAB PO SCH ×3 (11:15→20:50)
[2021-02-02] MEDS: SERTRALINE HCL 50 MG TABLET PO SCH (11:15)
[2021-02-02] MEDS: THIAMINE HCL 100 MG/ML 2ML VIAL IVP SCH (11:15)
[2021-02-02] MEDS: MIDODRINE HCL 5 MG TABLET PO SCH ×3 (11:16→20:50)
[2021-02-02 12:32] LABS: APPEARANCE BODY FLUID CLEAR (CLEAR); COLOR,BODY FLUID DARK YELLOW (LT YELLOW); SPECIMENTYPE,BODY FLUID ASCITES
[2021-02-02 12:33] LABS: BODY FLUID RBC 1750 /cu. mm.; BODY FLUID WBC 802 /cu. mm.
[2021-02-02 12:42] LABS: TOTAL VOLUME,BODY FLUID 9600 mL
[2021-02-02 12:49] LABS: BF LYMPHOCYTE 11 %; BF MONOCYTE 27 %
[2021-02-02 15:03] LABS: ALBUMIN,BODY FLUID 1.4 g/dL
[2021-02-02] MEDS: CEFTRIAXONE 2GM VIAL IVP SCH (18:19)
[2021-02-02] MEDS: FLUCONAZOLE 400 MG/NS 200 ML 200 ML IV SCH (18:20)
[2021-02-03] VITALS (27 sets, daily range): BP systolic 91–168; BP diastolic 48–84
[2021-02-03 03:58] LABS: HEMATOCRIT 30.4 % (36-48); MEAN CORPUSCULAR HEMOGLOBIN 32.2 pg (27.0-33.0); MEAN CORPUSCULAR HGB CONC 32.2 g/dL (32.0-36.0); RED BLOOD CELL COUNT(AUTO) 3.04 MIL/uL (4.00-5.50); WHITE BLOOD COUNT (AUTO) 8.1 K/uL (4.8-10.8)
[2021-02-03 04:09] LABS: CREATININE 4.1 mg/dL (0.5-1.5); MAGNESIUM 1.9 mg/dL (1.80-2.40)
[2021-02-03 04:12] LABS: INR 1.35 (0.85-1.15); PROTHROMBIN TIME 14.3 SEC (9.6-11.6)
[2021-02-03] MEDS: INSULIN HUMULIN R 100 UNIT/ML 3ML SQ SCH ×4 (06:27→21:53)
[2021-02-03] MEDS: INSULIN GLARGINE 100 UNITS/ML 10 ML VIAL SQ SCH ×2 (06:27→21:54)
[2021-02-03] MEDS: METOCLOPRAMIDE 10 MG/2 ML VIAL IVP SCH ×4 (07:30→21:48)
[2021-02-03] MEDS ORDERED: CEFAZOLIN SODIUM 1 GM VIAL ONE (08:36)
[2021-02-03] MEDS: MIDODRINE HCL 5 MG TABLET PO SCH ×3 (09:00→21:49)
[2021-02-03] MEDS: SERTRALINE HCL 50 MG TABLET PO SCH (09:00)
[2021-02-03] MEDS: SODIUM BICARBONATE 650 MG TAB PO SCH ×3 (09:00→21:49)
[2021-02-03] MEDS: THIAMINE HCL 100 MG/ML 2ML VIAL IVP SCH (09:00)
[2021-02-03] MEDS: Vitamin B Complex/Vit C/Folic Acid PO SCH (09:00)
[2021-02-03] MEDS ORDERED: CEFAZOLIN SODIUM 1 GM VIAL IVP PRN (09:00)
[2021-02-03] MEDS: FLUCONAZOLE 400 MG/NS 200 ML 200 ML IV SCH (09:00)
[2021-02-03] MEDS: PANTOPRAZOLE 40 MG/VIAL IVP SCH ×2 (09:00→21:48)
[2021-02-03] MEDS ORDERED: CIPR-278 PO (09:02)
[2021-02-03] MEDS ORDERED: INSU3INS3 SQ (09:02)
[2021-02-03] MEDS ORDERED: METO10TA3 PO (09:02)
[2021-02-03] MEDS ORDERED: PANT20TA18 PO (09:02)
[2021-02-03] MEDS ORDERED: LACT PO (09:02)
[2021-02-03] MEDS ORDERED: GLYCOPYRROLATE 1 MG/5 ML SYRINGE ONE (09:09)
[2021-02-03] MEDS ORDERED: PROPOFOL 10 MG/ML 20ML VIAL IV ONE (09:09)
[2021-02-03] MEDS ORDERED: DEXAMETHASONE SOD PHOSPHATE 10MG/ML 1ML VIAL ONE (09:09)
[2021-02-03] MEDS ORDERED: ROCURONIUM 10MG/1ML SYR 10 MG/ML ML ONE (09:09)
[2021-02-03] MEDS ORDERED: FENTANYL CITRATE PF 50 MCG/1 ML 2ML VIAL ONE (09:09)
[2021-02-03] MEDS ORDERED: SUCCINYLCHOLINE 200MG/10ML SYR ONE ×2 (09:09)
[2021-02-03] MEDS ORDERED: LIDOCAINE PF 100MG/5ML (2%) SYRINGE 5ML ONE ×2 (09:09)
[2021-02-03] MEDS ORDERED: NEOSTIGMINE 5MG/5ML SYR IV ONE (09:09)
[2021-02-03] MEDS ORDERED: HEPARIN 10,000 UNIT/10ML (1,000 UNIT/ML) VIAL ONE (09:48)
[2021-02-03] MEDS ORDERED: PROTAMINE SULFATE 10 MG/ML 25ML VIAL IV ONE ×2 (10:10)
[2021-02-03] MEDS ORDERED: METOPROLOL TARTRATE 1 MG/ML 5ML VIAL IV ONE (10:32)
[2021-02-03] MEDS ORDERED: SUGAMMADEX SODIUM 200 MG/2 ML VIAL IV ONE (10:38)
[2021-02-03] MEDS: CEFTRIAXONE 2GM VIAL IVP SCH (13:38)
[2021-02-04 01:01] VITALS: BP 124/54
[2021-02-04 03:51] VITALS: BP 96/56
[2021-02-04] MEDS: INSULIN HUMULIN R 100 UNIT/ML 3ML SQ SCH ×2 (06:33→11:47)
[2021-02-04] MEDS: INSULIN GLARGINE 100 UNITS/ML 10 ML VIAL SQ SCH (06:35)
[2021-02-04] MEDS: METOCLOPRAMIDE 10 MG/2 ML VIAL IVP SCH (07:30)
[2021-02-04 08:00] VITALS: BP 91/42
[2021-02-04] MEDS: PANTOPRAZOLE 40 MG/VIAL IVP SCH (10:02)
[2021-02-04] MEDS: FLUCONAZOLE 400 MG/NS 200 ML 200 ML IV SCH (10:02)
[2021-02-04] MEDS: Vitamin B Complex/Vit C/Folic Acid PO SCH (10:03)
[2021-02-04] MEDS: SERTRALINE HCL 50 MG TABLET PO SCH (10:03)
[2021-02-04] MEDS: SODIUM BICARBONATE 650 MG TAB PO SCH (10:03)
[2021-02-04] MEDS: MIDODRINE HCL 5 MG TABLET PO SCH (10:03)
[2021-02-04] MEDS: THIAMINE HCL 100 MG/ML 2ML VIAL IVP SCH (10:04)
[2021-02-04 12:00] VITALS: BP 107/38
[2021-02-04] MEDS: CEFTRIAXONE 2GM VIAL IVP SCH (13:30)
== END 2021-02-04 14:41 | disposition home or self-care (01) | DRG 628 ==
LOC: EDH 20:26 → EDHIP 01-21 00:06 → 2CH 01-21 06:07 → 4CH 01-24 20:39
PROVIDERS: ADMIT Internal Medicine Critical Care Medicine; ATTEND Internal Medicine Critical Care Medicine
PROC: 0W9G3ZZ Drainage of Peritoneal Cavity, Percutaneous Approach (ICD-10-PCS; 2021-01-25)
PROC: 5A1D70Z Performance of Urinary Filtration, Intermittent, Less than 6 Hours Per Day (ICD-10-PCS; 2021-01-27)
PROC: 0JH63XZ Insertion of Tunneled Vascular Access Device into Chest Subcutaneous Tissue and Fascia, Percutaneous Approach (ICD-10-PCS; 2021-01-27)
PROC: 02H633Z Insertion of Infusion Device into Right Atrium, Percutaneous Approach (ICD-10-PCS; 2021-01-27)
PROC: B5181ZA Fluoroscopy of Superior Vena Cava using Low Osmolar Contrast, Guidance (ICD-10-PCS; 2021-01-27)
PROC: B548ZZA Ultrasonography of Superior Vena Cava, Guidance (ICD-10-PCS; 2021-01-27)
PROC: 5A1D70Z Performance of Urinary Filtration, Intermittent, Less than 6 Hours Per Day (ICD-10-PCS; 2021-01-28)
PROC: 5A1D70Z Performance of Urinary Filtration, Intermittent, Less than 6 Hours Per Day (ICD-10-PCS; 2021-01-30)
PROC: 5A1D70Z Performance of Urinary Filtration, Intermittent, Less than 6 Hours Per Day (ICD-10-PCS; 2021-02-02)
PROC: 0W9G3ZZ Drainage of Peritoneal Cavity, Percutaneous Approach (ICD-10-PCS; 2021-02-02)
PROC: 5A09357 Assistance with Respiratory Ventilation, Less than 24 Consecutive Hours, Continuous Positive Airway Pressure (ICD-10-PCS; 2021-02-03)
PROC: 03170ZD Bypass Right Brachial Artery to Upper Arm Vein, Open Approach (ICD-10-PCS; principal; 2021-02-03 09:00)
DX: E11.10 Type 2 diabetes mellitus with ketoacidosis without coma (principal); K85.90 Acute pancreatitis without necrosis or infection, unspecified; K76.7 Hepatorenal syndrome; E43 Unspecified severe protein-calorie malnutrition; K65.2 Spontaneous bacterial peritonitis; N18.6 End stage renal disease; A41.9 Sepsis, unspecified organism; N17.9 Acute kidney failure, unspecified; N39.0 Urinary tract infection, site not specified; R18.8 Other ascites; E87.1 Hypo-osmolality and hyponatremia; I12.0 Hypertensive chronic kidney disease with stage 5 chronic kidney disease or end stage renal disease; I47.2 Ventricular tachycardia; E11.22 Type 2 diabetes mellitus with diabetic chronic kidney disease; Z20.822 Contact with and (suspected) exposure to COVID-19; K74.60 Unspecified cirrhosis of liver; B96.1 Klebsiella pneumoniae [K. pneumoniae] as the cause of diseases classified elsewhere; D64.9 Anemia, unspecified; D69.59 Other secondary thrombocytopenia; E03.9 Hypothyroidism, unspecified; E86.0 Dehydration; E86.1 Hypovolemia; E87.6 Hypokalemia; I48.91 Unspecified atrial fibrillation; I95.89 Other hypotension; K31.89 Other diseases of stomach and duodenum; K76.0 Fatty (change of) liver, not elsewhere classified; Z99.2 Dependence on renal dialysis; Z86.79 Personal history of other diseases of the circulatory system; Z68.22 Body mass index [BMI] 22.0-22.9, adult
CPT/HCPCS: 36415; 36558; 36600; 49083; 71045; 74176; 76705; 77001; 78452; 80048; 80053; 80061; 81001; 82010; 82040; 82042; 82140; 82270; 82435; 82565; 82570; 82728; 82803; 82947; 82948; 83036; 83540; 83550; 83605; 83690; 83735; 83935; 84100; 84132; 84157; 84295; 84300; 84443; 84484; 84520; 84550; 85014; 85018; 85025; 85027; 85610; 85730; 86701; 86704; 86706; 86850; 86900; 86901; 87040; 87071; 87077; 87088; 87186; 87205; 87340; 87390; 87635; 89051; 90935; 93005; 93017; 93306; 93356; 93970; 94660; 96365; 96374; 97039; 99291; A9500; C1729; C1750; C9113; G0378; J0330; J0690; J0696; J1100; J1450; J1644; J1815; J2001; J2354; J2405; J2543; J2704; J2710; J2720; J2765; J2785; J3010; J3411; J3490; J7030; J7042; P9046; P9047